=== PATIENT | female | born 1940 | race Caucasian/White ===

== ENCOUNTER 2019-10-22 14:03 | Emergency (ER) | payer MEDICARE, MEDICAID, SELFPAY ==
--- NOTE | ~2019-10-22 | XR_ITS ---
EXAMINATION: XR shoulder LT min 2V INDICATION: Left shoulder pain TECHNIQUE: Four views of the left shoulder are obtained. COMPARISON: 08/22/2008 FINDINGS: There is mild glenohumeral and acromioclavicular joint osteoarthritis. Bone alignment is no rmal. There is no acute fracture. Healed left-sided rib fractures are noted. IMPRESSION: 1. No acute osseous abnormality. Reviewed, dictated and finalized at location A. 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
--- NOTE | ~2019-10-22 | XR_ITS ---
EXAMINATION: XR humerus LT INDICATION: Left arm pain TECHNIQUE: Two views of the left humerus are obtained. COMPARISON: None available FINDINGS: There is no fracture, dislocation, or subluxation. Mild glenohumeral and acromioclavicular joint osteoarthritis is noted. The soft tissues are unremarkable. IMPRESSION: 1. No acute osseous abnormality. Reviewed, dictated and finalized at location A. H WORKER
[2019-10-22 14:05] VITALS: BP 136/70; PULSE 78; RESP 16; O2SAT 100
--- NOTE | 2019-10-22 15:17 | ED.GENADULT ---
HPI - General Adult General Chief complaint: Extremity Injury, Upper Stated complaint: L arm pain for 3 hrs Time Seen by Provider: 10/22/19 15:15 Source: patient and family Mode of arrival: EMS Limitations: dementia History of Present Illness HPI narrative: Patient was sent from the assisted living facility because she was complaining of left arm heaviness. She was seen by her sister at noon and was fine, another sister got a call at 2 PM about the complaint. Patient does have a history of stroke in 2015 that has left her with vascular dementia, no focal deficit. Patient thinks that maybe she slept on her arm wrong, the pain is getting better and she does move all extremities freely. Sister states that she could have fallen and not remember, there is no bruising. Denies any chest pain shortness of breath. Onset (ago): hour(s) Location: left and upper extremity Exacerbating factors: other (touch) Associated symptoms: denies other symptoms Treatments prior to arrival: none Related Data Allergies Allergy/AdvReac Type Severity Reaction Status Date / Time No Known Allergies Allergy Unknown Unverified 03/14/15 15:12 Review of Systems Review of Systems: All systems reviewed & are unremarkable except as noted in HPI and below [facility] Past Medical History Medical History Stroke Social History Social History (Updated 10/22/19 @ 15:30 by Cristy Worley PA-C) Smoking status: Never smoker Alcohol intake: never Substance use: never Living arrangements: assisted living Gender identity (if verbalized by the patient): Female Exam Const: General: healthy appearing, no acute distress and alert HENMT: Head: normal to inspection Eyes: Pupils: Equal, round and reactive pupils present Resp: Effort & Inspection: normal respiratory effort Auscultation: clear to auscultation bilaterally Cardio: Rate: regular rate Rhythm: abnormal rhythm irregularly irregular GI: GI Palp: Yes Soft to palpation and Yes Tenderness to palpation present (GI) (Left lower quadrant) Auscultation: normal bowel sounds Skin: General skin exam: normal color Rashes: no rashes Wounds: no wounds Neuro: General: moves all extremities, no focal motor deficits and CN's II-XI intact bilaterally Extrem: General: normal to inspection Left upper extremity: normal to inspection, full ROM, normal capillary refill and shoulder/upper arm tenderness (unclear if it is muscular or bone. No crepitus) of the mid-shaft humerus Psych: Attitude: cooperative Course Course Emergency Course: Repeat EKG was done due to irreg rhythm noted by auscultation and on bedside monitor. Repeat was also NSR. All labs and imaging are unremarkable. Pt is asking to go home, she is complaining of mild muscular pain but has full use of both upper extremities. Vital Signs Vital signs: Vital Signs Pulse Rate 78 10/22/19 14:05 Respiratory Rate 16 10/22/19 14:05 Blood Pressure 136/70 10/22/19 14:05 Pulse Oximetry 100 10/22/19 14:05 Pulse Rate 78 10/22/19 14:05 Respiratory Rate 16 10/22/19 14:05 Blood Pressure 136/70 10/22/19 14:05 Pulse Oximetry 100 10/22/19 14:05 Medical Decision Making Vital Signs Vital Signs: Vital Signs Pulse Rate 78 10/22/19 14:05 Respiratory Rate 16 10/22/19 14:05 Blood Pressure 136/70 10/22/19 14:05 Pulse Oximetry 100 10/22/19 14:05 Pulse Rate 78 10/22/19 14:05 Respiratory Rate 16 10/22/19 14:05 Blood Pressure 136/70 10/22/19 14:05 Pulse Oximetry 100 10/22/19 14:05 Discharge Plan Discharge Clinical Impression: Left upper arm pain Patient Disposition: Home, Self-Care Condition: Stable Instructions: Antibiotic Form, Arm Pain (ED) Additional Instructions: Etiology of your pain is unclear, there is no evidence of fracture or contusion. No cardiac etiology. Continue to take your Tylenol, may increase to every 4-6 cielo
--- NOTE | 2019-10-22 15:34 | ECG_ITS ---
Measurements Intervals [place] Rate: 70 P: 29 OR: 167 QRS: -21 QRSD: 90 T: 86 QT: 373 QTc: 403 Interpretive Statements SINUS RHYTHM LOW QRS VOLTAGE IN PRECORDIAL LEADS BORDERLINE R WAVE PROGRESSION, ANTERIOR LEADS BORDERLINE ST-T WAVE ABNORMALITY- LATERAL LEADS BORDERLINE ECG Electronically Signed On 10-22-2019 15:43:06 BUSINESS SYSTEM CONSULTANT by Thomas Keita D.O.
[2019-10-22 15:46] VITALS: BP 163/88; PULSE 71; RESP 16; O2SAT 100
[2019-10-22 16:12] LABS: Basophils Absolute Auto 0.1 K/mm3 (0.0-0.1); Basophils Percent Auto 1.5 % (0.2-1.2); Eosinophils Absolute Auto 0.1 K/mm3 (0-0.3); Eosinophils Percent Auto 2.4 % (0-4.4); Hematocrit 30.8 % (37.0-47.0); Hemoglobin 8.5 g/dL (12.0-15.0); Immature Granulocyte Absolute 0.01 K/mm3 (0.00-0.031); Immature Granulocyte Percent A 0.2 % (0-0.5); Lymphocytes Percent Auto 22.4 % (18.3-44.2); Mean Corpuscular HGB Conc 27.6 g/dl (32-36); Mean Corpuscular Hemoglobin 22.2 pg (26-34); Mean Corpuscular Volume 80.4 fl (80-100); Mean Platelet Volume 9.6 fl (7.4-10.4); Monocytes Absolute Auto 0.4 K/mm3 (0.1-0.6); Monocytes Percent Auto 6.4 % (2.6-8.5); Neutrophils Absolute Auto 3.9 K/mm3 (1.3-6.7); Neutrophils Percent Auto 67.1 % (45.5-73.1); Platelet Count Result 290 k/mm3 (150-375); Red Blood Count 3.83 M/mm3 (4.2-5.4); Red Cell Distribution Width 18.5 % (11.5-14.5); White Blood Count 5.8 K/mm3 (4.5-10.0)
[2019-10-22 16:24] LABS: Alanine Aminotransferase 16 U/L (4-35); Albumin Level 4.5 g/dL (3.5-5.1); Alkaline Phosphatase 70 U/L (38-126); Aspartate Amino Transferase 27 U/L (14-36); Bilirubin,Total 0.3 mg/dL (0.2-1.3); Blood Urea Nitrogen 23 mg/dL (7-17); Calcium 8.7 mg/dL (8.4-10.2); Carbon Dioxide 25 mmol/L (22-30); Chloride 106 mmol/L (98-107); Estimated CRCL calculation 33 ml/min; Estimated Glomerular Filt Rate 43; Glucose 98 mg/dL (65-105); Potassium 4.4 mmol/L (3.4-5.0); Sodium 141 mmol/L (137-145)
[2019-10-22 16:35] LABS: Troponin I < 0.012 ng/mL (0.000-0.034)
[2019-10-22 16:36] LABS: Prothrombin Time 12.8 Seconds (11.1-14.7)
[2019-10-22 16:37] LABS: Partial Thromboplastin Time 30.4 SECONDS (22.3-36.8)
[2019-10-22] MEDS: ACETAMINOPHEN 325 MG TABLET 650 MG PO (17:20)
[2019-10-22 17:58] VITALS: BP 136/88; PULSE 71; RESP 16; O2SAT 98
== END 2019-10-22 17:59 | disposition home or self-care (01) ==
PROVIDERS: Physician Assistant; Emergency Provider Emergency Medicine; PCP Family Medicine
DX: M79.602 Pain in left arm (principal); I69.919 Unspecified symptoms and signs involving cognitive functions following unspecified cerebrovascular disease; F01.50 Vascular dementia, unspecified severity, without behavioral disturbance, psychotic disturbance, mood disturbance, and anxiety; R94.31 Abnormal electrocardiogram [ECG] [EKG]
CPT/HCPCS: 36415; 73030; 73060; 80053; 84484; 85025; 85610; 85730; 93005; 99284; A9270

== ENCOUNTER 2021-03-20 10:16 | Emergency (ER) | payer MEDICARE, OTHER, SELFPAY ==
--- NOTE | ~2021-03-20 | CT_ITS ---
EXAMINATION: CT brain wo con DATE: 03/20/2021 11:01 INDICATION: Head injury. TECHNIQUE: Computed tomography (CT) of the head was performed without intravenous contrast. The mA wa s adjusted according to patient size. Iterative reconstruction technique was employed. The dose-lengt h product was 605.33 mGy-cm. COMPARISON: Head CT 01/11/2018, brain MRI 03/29/2015 FINDINGS: There are scattered areas of low attenuation in the cerebral white matter. There is an old infarct in left temporal occipital region in the expected distribution of left posterior cerebral art gely. There are old infarcts in the right basal ganglia. There is no intracranial hemorrhage, acute in farction, or abnormal intracranial mass lesion. The ventricles are normal in size. There is mucosal t hickening in the paranasal sinuses with thickening and sclerosis of some of the sinus edouard, consiste nt with chronic sinusitis. There are likely changes of ocular lens replacement surgeries. The mastoid air cells are normal. There is frontal scalp soft tissue swelling. There are fracture deformities of the nasal bones. IMPRESSION: 1. Old infarct in left temporal occipital region. Old infarcts in the right basal ganglia. 2. Stable moderate nonspecific cerebral white matter disease, which likely represents chronic small v essel ischemic disease. 3. Chronic sinusitis. 4. Age indeterminant fracture deformities of the nasal bones. Reviewed, dictated and finalized at location A. IMPRESSION: 1. Old infarct in left temporal occipital region. Old infarcts in the right bas al ganglia. 2. Stable moderate nonspecific cerebral white matter disease, which likely repr esents chronic small vessel ischemic disease. 3. Chronic sinusitis. 4. Age indeterminant fracture deformities of the nasal bones.
--- NOTE | ~2021-03-20 | CT_ITS ---
EXAMINATION: CT facial & cervical spine wo DATE: 03/20/2021 11:01 INDICATION: Head injury. TECHNIQUE: Computed tomography (CT) of the maxillofacial region and cervical spine was performed with out intravenous contrast. Automated exposure control and iterative reconstruction technique were empl oyed. The dose-length product was 513.00 mGy-cm. COMPARISON: CT cervical spine 08/31/2012 FINDINGS: MAXILLOFACIAL CT: There is mucosal thickening in the paranasal sinuses with thickening and sclerosis of some of the sin us edouard, consistent with chronic sinusitis. There is leftward deviation of the nasal septum. There a re likely changes of ocular lens replacement surgeries. There are fracture deformities of the nasal b ones. There is frontal scalp soft tissue swelling. CERVICAL SPINE CT: There is 7 degrees dextrocurvature of cervical spine. Vertebral body heights and intervertebral disc heights are normal. The following disc levels are specifically discussed: C2-C3: There is no uncovertebral joint osteoarthritis. There is moderate left facet joint osteoarthri tis. There is ankylosis of right facet joint with moderate hypertrophy. There is mild right neural fo raminal stenosis. There is no central canal stenosis. C3-C4: There is mild bilateral uncovertebral joint osteoarthritis. There is severe bilateral facet norm int osteoarthritis. There is mild bilateral neural foraminal stenosis. There is mild central canal st enosis. C4-C5: There is mild bilateral uncovertebral joint osteoarthritis. There is severe bilateral facet norm int osteoarthritis. There is mild left neural foraminal stenosis. There is mild central canal stenosi s. C5-C6: There is no uncovertebral joint osteoarthritis. There is severe bilateral facet joint osteoart hritis. There is mild left neural foraminal stenosis. There is mild central canal stenosis. C6-C7: There is no uncovertebral joint osteoarthritis. There is severe bilateral facet joint osteoart hritis. There is mild bilateral neural foraminal stenosis. There is no central canal stenosis. C7-T1: There is no uncovertebral joint osteoarthritis. There is severe right and mild left facet join t osteoarthritis. There is mild right neural foraminal stenosis. There is no central canal stenosis. IMPRESSION: 1. Fracture deformities of the nasal bones, likely chronic. 2. Chronic sinusitis. 3. Mild cervical spondylosis. Reviewed, dictated and finalized at location A.
--- NOTE | ~2021-03-20 | XR_ITS ---
EXAMINATION: XR hand RT min 3V DATE: 03/20/2021 11:07 INDICATION: Bruising at the second metacarpal post fall TECHNIQUE: Posteroanterior, oblique and lateral views of the right hand were obtained. COMPARISON: 04/13/2014 FINDINGS: No traumatic malalignment. No fracture. Polyarticular osteoarthritis, severe and with erosive compone nt at the second distal interphalangeal joint with small central erosion at the ulnar side of the bas e of the distal phalanx resulting in slight ulnar angulation. Moderate osteoarthritis at the fifth di stal interphalangeal joint with additional central erosions at the base of the fifth distal phalanx. Moderate osteoarthritis at the triscaphe and first carpal metacarpal joints. Mild osteoarthritis at t he radial ulnar, wrist, metacarpophalangeal and remaining interphalangeal joints. Portions of the mid diaphysis of the fourth proximal phalanx are obscured by a pair of metallic rings. Diffuse osteopeni a. IMPRESSION: 1. No acute osseous abnormality. 2. Polyarticular osteoarthritis, most severe at the radial aspect of the carpus and at the second and fifth distal interphalangeal joints. Reviewed, dictated and finalized at location A.
[2021-03-20 10:18] VITALS: BP 161/78; PULSE 80; RESP 18; TEMP 37.5; O2SAT 96
--- NOTE | 2021-03-20 10:50 | ED.FALL ---
HPI - Fall General Chief Complaint: Fall Stated Complaint: fall Time Seen by Provider: 03/20/21 10:25 History of Present Illness HPI Narrative: Patient is an 80-year-old female who presents ER to be evaluated after fall last night. Patient with dementia and fell at her assisted living. Patient with bruising to her right forehead and around her right eye. She reports discomfort over the bridge of her nose hand and right hand. She is oriented x2. Patient does not take any blood thinners. Related Data Allergies Allergy/AdvReac Type Severity Reaction Status Date / Time No Known Allergies Allergy Unknown Verified 03/20/21 10:24 Review of Systems Review of Systems: ROS unobtainable: Yes unobtainable due to mental status PMFSH Past Medical History Medical History (Updated 03/20/21 @ 12:14 by Zain Duran MD) Hyperlipidemia Hypertension Stroke Social History Social History (Updated 10/22/19 @ 15:30 by Cristy Worley PA-C) Smoking status: Never smoker Alcohol intake: never Substance use: never Gender identity (if verbalized by the patient): Female Exam Narrative: Exam Narrative: GENERAL: Well-appearing, well-nourished, and in no acute distress. HEAD: Normocephalic, atraumatic. Right forehead contusion. EYES: PERRL and EOMI. contusion around the right eye. ENT: Mucous membranes moist. NECK: Supple. Normal range of motion. CHEST: Clear to auscultation. No respiratory distress. HEART: Regular rate and rhythm. Normal peripheral pulses. ABDOMEN: Soft, nontender, nondistended. EXTREMITIES: Normal range of motion. Tender palpation over the third and fourth MCPs of the right hand with slight swelling. No deformity. SKIN: Warm, dry, no rash. NEURO: No focal deficits. Alert and oriented x2.. Course Course Emergency Course: Patient informed results. Discharge home. Vital Signs Vital signs: Vital Signs Temperature 99.5 F 03/20/21 10:18 Pulse Rate 80 03/20/21 10:18 Respiratory Rate 18 03/20/21 10:18 Blood Pressure 161/78 H 03/20/21 10:18 Pulse Oximetry 96 03/20/21 10:18 Temperature 99.5 F 03/20/21 10:18 Pulse Rate 60 03/20/21 11:16 Respiratory Rate 17 03/20/21 11:16 Blood Pressure 188/82 H 03/20/21 11:16 Pulse Oximetry 96 03/20/21 11:16 MDM - Fall Lab Data Labs: Lab Results 03/20/21 Range/Units 11:34 Urine Color Yellow (Yellow) Urine Appearance Clear (Clear) Urine pH 6.0 (5.0-9.0) Ur Specific [place] 1.020 (1.001-1.035) Urine Protein 1+ H (Negative) mg/dL Urine Glucose (UA) Negative (Negative) mg/dL Urine Ketones Negative (Negative) mg/dL Ur Blood (Man) Negative (Negative) Urine Nitrate Negative (Negative) Urine Bilirubin Negative (Negative) Urine Urobilinogen Negative (<2.0) mg/dL Leukocyte Esterase Rfl 1+ H (Negative) SULAIMAN/UL Urine RBC 0-2 (0-2) /hpf Urine WBC 4-6 H /hpf Ur Squamous Epith Cells Few (Few) /hpf Hyaline Casts 5-9 H (None) /lpf Urine Mucus Rare /lpf Imaging Data Radiologist's impression: ITS Impressions Head CT 03/20/21 11:02 IMPRESSION: 1. Old infarct in left temporal occipital region. Old infarcts in the right basal ganglia. 2. Stable moderate nonspecific cerebral white matter disease, which likely represents chronic small vessel ischemic disease. 3. Chronic sinusitis. 4. Age indeterminant fracture deformities of the nasal bones. Hand X-Ray 03/20/21 11:08 IMPRESSION: 1. No acute osseous abnormality. 2. Polyarticular osteoarthritis, most severe at the radial aspect of the carpus and at the second and fifth distal interphalangeal joints. Head/Cervical Spine/Facial Bones CT 03/20/21 11:14 IMPRESSION: 1. Fracture deformities of the nasal bones, likely chronic. 2. Chronic sinusitis. 3. Mild cervical spondylosis. Discharge Plan Discharge Clinical Impression: Contusion of forehead, Contusion of periorbital region Patient Disposition
[2021-03-20 11:16] VITALS: BP 188/82; PULSE 60; RESP 17; O2SAT 96
[2021-03-20 11:48] LABS: Add Urine Microscopic? YES; Appearance Urine Clear (Clear); Bilirubin Urine Negative (Negative); Blood Urine Negative (Negative); Color Urine Yellow (Yellow); Glucose Urine UA Negative (Negative); Ketones Urine Negative (Negative); Leukocyte Esterase Ur 1+ LEU/UL (Negative); Mucus Urine Rare /lpf; Nitrate Urine Negative (Negative); Protein Urine 1+ mg/dL (Negative); RBC Urine 0-2 /hpf (0-2); Squamous Epithelial Cell Urine Few /hpf (Few); Urobilinogen Urine Negative mg/dL (<2.0)
[2021-03-20 12:38] VITALS: BP 187/86; PULSE 60; RESP 18; O2SAT 100
== END 2021-03-20 12:39 ==
PROVIDERS: Emergency Provider Emergency Medicine; PCP Family Medicine
DX: S00.11XA Contusion of right eyelid and periocular area, initial encounter (principal); S00.83XA Contusion of other part of head, initial encounter; W18.30XA Fall on same level, unspecified, initial encounter; E78.5 Hyperlipidemia, unspecified; I10 Essential (primary) hypertension
CPT/HCPCS: 70450; 70486; 72125; 73130; 81001; 99284

== ENCOUNTER 2021-11-27 16:10 | Observation (INO) | payer MEDICARE, MEDICAID, SELFPAY ==
[2021-11-27] VITALS (13 sets, daily range): BP systolic 100–224; BP diastolic 46–97; PULSE 39–65; RESP 16–20; TEMP 36.2–36.8; O2SAT 95–100; BMI 32.3
--- NOTE | ~2021-11-27 | CT_ITS ---
EXAMINATION: CT brain wo con EXAM DATE: 11/27/2021 20:34 INDICATION: Headache HTN. TECHNIQUE: Spiral CT of the head was performed without contrast. Axial, coronal and sagittal images were reviewed. The dose-length product (DLP) for this examination was 983.67 mGy-cm. The exposure w as tailored according to patient size, and iterative reconstruction (ASIR) was used as additional dos e reduction technique. Comparison is made to prior examination from 03/20/2021. 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 There is no acute intraparenchy mal hemorrhage. No evidence of intraparenchymal brain mass lesion. No evidence of acute infarction. Please note that initial head CT has limited sensitivity for small or acute infarctions. There is moderate periventricular and subcortical hypodensity, nonspecific but probably related to small vesse l ischemic disease. There is mild to moderate prominence of the sulci and ventricles related to cer ebral atrophy. There is intracranial carotid arteriosclerosis. There are no extra-axial collection s. There is no mass effect or midline shift. Patient has had bilateral ocular lens surgery. Soft t issue is unremarkable. Moderate left maxillary sinus mucoperiosteal thickening. IMPRESSION: 1. No acute intracranial findings. 2. Chronic age related findings. 3. 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 Reviewed, dictated and finalized at location G.
--- NOTE | 2021-11-27 16:44 | ECG_ITS ---
Measurements Intervals [place] Rate: 57 P: 58 ID: [id number] QRS: 16 QRSD: 90 T: 95 QT: 423 QTc: 413 Interpretive Statements SINUS BRADYCARDIA LOW QRS VOLTAGE IN PRECORDIAL LEADS [QRS DEFLECTION < 1.0 mV IN CHEST LEADS] NONSPECIFIC T-WAVE ABNORMALITY ABNORMAL ECG COMPARED TO ECG 10/22/2019 16:11:20 SINUS BRADYCARDIA NOW PRESENT Electronically Signed On 11-28-2021 13:52:00 CDT by Jet Lind M.D.
[2021-11-27 17:36] LABS: Basophils Absolute Auto 0.1 K/mm3 (0.0-0.1); Basophils Percent Auto 1.2 % (0.2-1.2); Eosinophils Absolute Auto 0.3 K/mm3 (0-0.3); Eosinophils Percent Auto 4.9 % (0-4.4); Hematocrit 28.3 % (37.0-47.0); Hemoglobin 7.7 g/dL (12.0-15.0); Immature Granulocyte Absolute 0.01 K/mm3 (0.00-0.031); Immature Granulocyte Percent A 0.2 % (0-0.5); Lymphocytes Absolute Auto 1.78 K/mm3 (0.9-3.2); Lymphocytes Percent Auto 34.6 % (18.3-44.2); Mean Corpuscular HGB Conc 27.2 g/dl (32-36); Mean Corpuscular Hemoglobin 21.8 pg (26-34); Mean Corpuscular Volume 79.9 fl (80-100); Mean Platelet Volume 10.1 fl (7.4-10.4); Monocytes Absolute Auto 0.5 K/mm3 (0.1-0.6); Monocytes Percent Auto 10.1 % (2.6-8.5); Neutrophils Absolute Auto 2.5 K/mm3 (1.3-6.7); Platelet Count Result 250 k/mm3 (150-375); Red Blood Count 3.54 M/mm3 (4.2-5.4); Red Cell Distribution Width 18.1 % (11.5-14.5); White Blood Count 5.2 K/mm3 (4.5-10.0)
--- NOTE | 2021-11-27 17:43 | ED.RECABL ---
HPI - Recheck/Abnormal Lab/Rx General Chief Complaint: Recheck/Abnormal Lab/Rx <Arnav Brurell MD - Last Filed: 11/27/21 20:20> Stated Complaint: HTN <Arnav Burrell MD - Last Filed: 11/27/21 20:20> Time Seen by Provider: 11/27/21 16:32 <Arnav Burrell MD - Last Filed: 11/27/21 20:20> Source: patient <Arnav Burrell MD - Last Filed: 11/27/21 20:20> History of Present Illness HPI narrative: Patient presents with high blood pressure. She is in a nursing facility patient blood pressure has been elevated above 200 for most of the day nursing facility was concerned stated for the patient ER for evaluation. Patient has no complaints. She denies any chest pain shortness of breath headache focal numbness or weakness abdominal pain nausea vomiting. Reports her urine is yellow and may have a UTI. <Arnav Burrell MD - Last Filed: 11/27/21 20:20> Related Data Allergies/Adverse Reactions: Allergies Allergy/AdvReac Type Severity Reaction Status Date / Time No Known Allergies Allergy Unknown Verified 11/02/21 14:50 <Arnav Burrell MD - Last Filed: 11/27/21 20:20> Review of Systems Review of Systems: CONSTITUTIONAL: Denies fever, chills, or sweats. EYES: Denies visual changes, redness, or discharge. ENT: Denies rhinorrhea, congestion, sore throat, or otalgia. CARDIOVASCULAR: Denies chest pain, palpitations, or edema. RESPIRATORY: Denies cough or dyspnea. GASTROINTESTINAL: Denies abdominal pain, nausea, vomiting, or diarrhea. GENITOURINARY: Denies dysuria or hematuria. SKIN: Denies rash or itching. MUSCULOSKELETAL: Denies back pain, joint pain, or myalgia. NEUROLOGIC: Denies headache, numbness, dizziness, or weakness. PSYCHIATRIC: Denies anxiety or depression. <Arnav Burrell MD - Last Filed: 11/27/21 20:20> All systems reviewed & are unremarkable except as noted in HPI and below <Arnav Burrell MD - Last Filed: 11/27/21 20:20> PMFSH Past Medical History Medical History: Medical History Hyperlipidemia Hypertension Stroke <Arnav Burrell MD - Last Filed: 11/27/21 20:20> Social History Social History: Social History Smoking status: Never smoker Alcohol intake: never Substance use: never Gender identity (if verbalized by the patient): Female <Arnav Burrell MD - Last Filed: 11/27/21 20:20> Exam Narrative: GENERAL: Well-appearing, well-nourished, and in no acute distress. HEAD: Normocephalic, atraumatic. EYES: PERRLA and EOMI. ENT: Nares clear, no rhinorrhea or epistaxis. Mucous membranes moist. NECK: Supple. No masses. No JVD CHEST: Clear to auscultation. No respiratory distress. No wheezes rales or rhonchi HEART: Regular rate and rhythm. No murmur heard. Normal peripheral pulses. ABDOMEN: Soft, nontender, nondistended, normal active bowel sounds. EXTREMITIES: Normal range of motion. No edema. SKIN: Warm, dry, no rash. NEURO: No focal deficits. Alert and oriented x3. PSYCH: Normal mood and affect. <Arnav Burrell MD - Last Filed: 11/27/21 20:20> Course Reevaluation(s) Reevaluation #1: Patient is continues to be asymptomatic work-up thus far was clinically unremarkable. <Arnav Burrell MD - Last Filed: 11/27/21 20:20> Date: 11/27/21 <Arnav Burrell MD - Last Filed: 11/27/21 20:20> Time: 19:55 <Arnav Burrell MD - Last Filed: 11/27/21 20:20> Reevaluation #2: Patient is patient reports she now has a headache. Reports she had a headache the whole time but did not want to admit that she has any pain and feel that she may be admitted to the hospital. Additional imaging and therapies ordered patient signed out to Dr. Vidales. Pending imaging and reevaluatoin. <Arnav Burrell MD - Last Filed: 11/27/21 20:20> Date: 11/27/21 <Arnav Burrell MD - Last Filed: 11/27/21 20:20> Time:
[2021-11-27 17:58] LABS: Alanine Aminotransferase 10 U/L (4-35); Alkaline Phosphatase 62 U/L (38-126); Anion Gap 4 mmol/L (8-16); Aspartate Amino Transferase 29 U/L (14-36); Bilirubin,Total 0.4 mg/dL (0.2-1.3); Blood Urea Nitrogen 25 mg/dL (7-17); Calcium 8.1 mg/dL (8.4-10.2); Carbon Dioxide 24 mmol/L (22-30); Chloride 109 mmol/L (98-107); Estimated Glomerular Filt Rate 53; Glucose 94 mg/dL (65-110); Potassium 4.8 mmol/L (3.4-5.0); Sodium 137 mmol/L (137-145)
[2021-11-27 18:09] LABS: Troponin I < 0.012 ng/mL (0.000-0.034)
[2021-11-27 18:14] LABS: Platelet Estimate Adequate (Adequate)
[2021-11-27 18:15] LABS: Hypochromasia 1+ (NORMAL); Ovalocytes 1+ (NORMAL)
[2021-11-27] MEDS: hydrALAZINE HCL 20 MG/ML VIAL 10 MG IV PUSH ×2 (18:35→20:08)
[2021-11-27 19:33] LABS: Add Urine Microscopic? YES; Appearance Urine Clear (Clear); Bilirubin Urine Negative (Negative); Blood Urine Negative (Negative); Color Urine Straw (Yellow); Glucose Urine UA Negative (Negative); Ketones Urine Negative (Negative); Leukocyte Esterase Ur 1+ LEU/UL (Negative); Nitrate Urine Negative (Negative); Protein Urine 1+ mg/dL (Negative); RBC Urine 0-2 /hpf (0-2); Specific Grav Ur 1.013 (1.001-1.035); Urobilinogen Urine Negative mg/dL (<2.0)
--- NOTE | 2021-11-27 20:28 | PC.NURSE ---
Pt daughter states that she was rubbing her temples and c/o headache. Pt states she does want staff to know so we don't keep her . ERP made aware, d/c cancelled and head CT ordered.
--- NOTE | 2021-11-27 20:50 | PC.NURSE ---
Upon return from CT pt c/o nausea and feeling poorly. Noted to have periods of bradycardia, rate of 39, bp 100/74. TOSHIA Kilpatrick made aware, orders for zofran received but no further interventions.
[2021-11-27] MEDS: ONDANSETRON INJ 4 MG/2 ML VIAL (20:53)
--- NOTE | 2021-11-27 21:18 | PC.NURSE ---
Arash at [facility] updated on patients name for admission. Family is agreeable.
[2021-11-27 22:01] LABS: SARS-CoV-2 RNA PCR Negative
--- NOTE | 2021-11-27 22:33 | ADMGEN ---
At 2155 this patient, Kateryna Schreiber, was admitted to 3 [facility] Surg Room 301-01. Patient/family oriented to hospital policies and general routines including ID bracelet, bed and alarms, visiting hours, pain management, procedures, bathroom and other care routines, personal items, smoking policy, room service/diet, and visiting hours. Information on how to activate the Rapid Response Team has been discussed. Patient/Family are encouraged to report perceived risks to care and to ask questions if they do not understand what they are told or what they should do.
--- NOTE | 2021-11-27 23:42 | PM.IMHP ---
H&P: HPI History of Present Illness Date/Time: 11/27/21 23:42 Chief Complaint: Elevated blood pressure Narrative: This is an 81-year-old female with a skilled nursing resident at [facility] who was brought in via EMS for elevated blood pressure that was noted when checked routinely in the nursing facility. It read 220/110. Patient however denied any complaints earlier or after EMS arrival. She denies any headache blurriness of vision or weakness. She has been on medication for hypertension and has also been compliant with it. Her other past medical history also includes anemia, anxiety, asthma, depression, GERD, hyperlipidemia. Upon EMS arrival her blood pressure checked was noted to be 210/102 with a heart rate of 68. This is from the note from the EMS. ED physician mentions she was complaining of headache earlier however is not complaining of any headache to me. Upon arrival to the ED her blood pressure was noted to be elevated for which she was given hydralazine IV x2 which subsequently dropped her blood pressure down to 100/60 with some bradycardia in 40s. She was thus getting admitted for further evaluation and monitoring under observation status. Review of Systems Review of Systems: - CONSTITUTIONAL: Denies weight loss, fever and chills. - HEENT: Denies changes in vision and hearing - RESPIRATORY: Denies SOB and cough. - CV: Denies palpitations and CP. - GI: Denies abdominal pain, nausea, vomiting and diarrhea. - : Denies dysuria and urinary frequency. - MSK: Denies myalgia and joint pain. - SKIN: Denies rash and pruritus. - NEUROLOGICAL: Denies headache and syncope. States she does not remember much lately - PSYCHIATRIC: Denies recent changes in mood. Denies anxiety and depression. All systems reviewed & are unremarkable except as noted in HPI and below Constitutional: Constitutional: Reports fatigue and Reports weakness Neurologic: Reports weakness Endocrine: Endocrine: Reports fatigue PMFSH Past Medical History Medical History (Updated 11/28/21 @ 00:11 by Manuel Thapa MD) Hyperlipidemia Hypertension Stroke Social History Social History Smoking status: Never smoker Second hand tobacco smoke exposure: No Alcohol intake: never Substance use: never Gender identity (if verbalized by the patient): Female Spiritual care concerns: No Meds Home Medications and Allergies Home Medications Medication Instructions Recorded Confirmed Type amlodipine 10 mg PO DAILY 11/27/21 11/27/21 History atorvastatin 40 mg PO DAILY 11/27/21 11/27/21 History famotidine 20 mg PO DAILY 11/27/21 11/27/21 History sertraline 50 mg PO DAILY 11/27/21 11/27/21 History Allergies Allergy/AdvReac Type Severity Reaction Status Date / Time No Known Allergies Allergy Unknown Verified 11/02/21 14:50 Vital Signs Vital Signs - 24 hr 11/27/21 16:12 11/27/21 16:28 11/27/21 17:00 Temperature 98.2 F Pulse Rate 58 L 59 L 60 Respiratory Rate 16 18 18 Blood Pressure 205/92 H 224/96 H 209/97 H Pulse Oximetry 100 99 99 11/27/21 18:21 11/27/21 18:54 11/27/21 19:01 Temperature Pulse Rate 56 L 58 L 65 Respiratory Rate 18 18 18 Blood Pressure 221/93 H 191/93 H 212/90 H Pulse Oximetry 98 98 98 11/27/21 19:30 11/27/21 19:54 11/27/21 20:51 Temperature Pulse Rate 61 61 39 L Respiratory Rate 18 18 18 Blood Pressure 203/78 H 211/86 H 100/74 Pulse Oximetry 98 98 100 11/27/21 20:54 11/27/21 21:03 11/27/21 21:45 Temperature Pulse Rate 59 L 56 L 63 Respiratory Rate 18 18 18 Blood Pressure 100/64 115/46 L Pulse Oximetry 97 95 99 11/27/21 21:53 Temperature 97.2 F L Pulse Rate 59 L Respiratory Rate 20 Blood Pressure 137/50 L Pulse Oximetry 99 Exam Narrative: GENERAL: Well-appearing, well-nourished, and in no acute distress. HEAD: Normocephalic, atraumatic. EYES: PERRLA and EOMI. ENT: Nares clear, no rhinorrh
[2021-11-28] VITALS (9 sets, daily range): BP systolic 135–167; BP diastolic 51–76; PULSE 57–85; RESP 18–20; TEMP 36.1–36.9; O2SAT 90–98
[2021-11-28 06:37] LABS: Immature Reticulocyte Fraction 24.8 % (3.0-15.9); Reticulocyte Percent 1.34 % (0.7-4.3); Reticulocytes Absolute 0.05 B/L (32.2-175.7)
[2021-11-28 06:45] LABS: Iron 28 ug/dL (37-170)
[2021-11-28 06:54] LABS: Percent Iron Saturation 7 % (20-50)
[2021-11-28 07:21] LABS: Ferritin 8.25 ng/mL (11.1-264)
[2021-11-28 07:40] LABS: Glucose Point of Care 92 mg/dl (65-105)
[2021-11-28 07:51] LABS: Folic Acid 8.9 ng/mL (2.76->20)
[2021-11-28] MEDS: ATORVASTATIN 40 MG TABLET PO (08:07)
[2021-11-28] MEDS: FAMOTIDINE 20 MG TABLET PO (08:07)
[2021-11-28] MEDS: amLODIPine BESYLATE 5 MG TABLET 10 MG PO (08:07)
[2021-11-28] MEDS: SERTRALINE HCL 50 MG TABLET PO (08:07)
[2021-11-28] MEDS: DOCUSATE SODIUM 100 MG CAPSULE PO ×2 (08:25→20:19)
[2021-11-28 08:38] LABS: Iron 27 ug/dL (37-170)
--- NOTE | 2021-11-28 12:11 | PM.IMPN ---
Progress Note: A&P Assessment and Plan (1) Hypertensive urgency: Code(s): I16.0 - Hypertensive urgency Status: Acute (2) Bradycardia: Code(s): R00.1 - Bradycardia, unspecified Status: Acute (3) Anemia, chronic disease: Code(s): D63.8 - Anemia in other chronic diseases classified elsewhere Status: Acute (4) Dementia: Code(s): F03.90 - Unspecified dementia without behavioral disturbance Status: Acute (5) Hypertension: Code(s): I10 - Essential (primary) hypertension Status: Acute (6) Hyperlipidemia: Code(s): E78.5 - Hyperlipidemia, unspecified Status: Acute (7) Stroke: Code(s): I63.9 - Cerebral infarction, unspecified Status: Acute Additional Plan Headache presented with headache as noted in the ED reports but she denies any currently. Also not noted in EMS report. Be transient due to high blood pressure when she presented. Continue to monitor head CT done on arrival is negative. Hypertensive urgency with headache given hydralazine x2 on arrival for her blood pressure in 200s over 90s, dropped down to 100/64 with bradycardia in 40s. Patient admitted for observation and further monitoring. History of hypertension resume her home medication and continue to monitor blood pressure Hyperlipidemia home medication Anxiety depression home medication GERD on medication Dementia she seems to have underlying dementia Moderate size left occipital lobe infarction noted in CT longterm resident Chronic anemia no evidence of active blood loss. Previous labs noted to have similar level of hemoglobin. RBC indices suggestive of iron deficiency will check iron level, vitamin B12 and folate reticulocyte count. Check occult blood in stool DVT prophylaxis SCDs due to anemia Code status full code Admitted under observation status 11/28/21: Pt. without any acute distress at this time. Her BP has ranged from 1-teens - 150s/40s-60s. Hypertensive urgency is resolved. Her home Amlodipine has been restarted and as her BP seems to be rising as the day goes on, she may need either an additional medication added later. We will need to continue to monitor. All other home medications have been resumed. She does appear to be anemic with a Hgb of 7.7 and hematocrit of 28.3. No overt blood loss and the pt. has not noted any blood in her urine. Anemia studies show low Iron and she is therefore started on supplemental Iron today along with Colace BID to prevent constipation. An occult blood of stool was ordered to assess for possible GI bleed. All other home medications have been restarted. Her B12 and Folate are normal. She does have a urine culture pending as she had 1+ Leuks in her UA, however, she is not symptomatic of an acute UTI, so treatment is deferred at this time. Culture pending. Time Spent With Patient Time with patient: 15 - 25 minutes Subjective Date/time seen: 11/28/21 0830 This pt. was examined at the bedside in interval assessment. She denies any acute complaints at this time of dyspnea, palpitations and no CP, dyspnea, N/V/D. Her BP has been treated acutely in ER and she has been restarted on her home medication and BP has been stable since. Her Hgb is noted to be low and there is no overt bleeding noted. Anemia labs are back and pt. is low on Iron. Supplemental po Iron is initiated today with Colace BID for prevention of constipation. Plan is to continue to monitor her BP and Hgb and will obtain occult blood for stool. She will likely be ready for discharge back to [facility] tomorrow. Review of Systems Review of Systems: A full 12 point ROS was completed and is otherwise negative with exception of what is noted in HPI. All systems reviewed & are unremarkable except as noted in HPI and below Exam Narrative: GENERAL: Well-appearing, well-nourished, and in no acute distress. HEAD: Normocephalic, atraumatic. EYES: PERRLA and EOMI. ENT: Nares clear, no rhinorr
[2021-11-29] VITALS (10 sets, daily range): BP systolic 161–185; BP diastolic 74–78; PULSE 63–82; RESP 16–20; TEMP 36.1–36.8; O2SAT 93–96
[2021-11-29] MEDS: ATORVASTATIN 40 MG TABLET PO (09:44)
[2021-11-29] MEDS: DOCUSATE SODIUM 100 MG CAPSULE PO ×2 (09:44→20:34)
[2021-11-29] MEDS: amLODIPine BESYLATE 5 MG TABLET 10 MG PO (09:44)
[2021-11-29] MEDS: SERTRALINE HCL 50 MG TABLET PO (09:45)
[2021-11-29] MEDS: FAMOTIDINE 20 MG TABLET PO (09:45)
[2021-11-29] MEDS: IRON SUCROSE COMPLEX 200 MG in SODIUM CHLORIDE 0.9% IV 50 ML 120 MG IVPB (09:45)
[2021-11-29 10:07] LABS: Basophils Absolute Auto 0.1 K/mm3 (0.0-0.1); Basophils Percent Auto 1.1 % (0.2-1.2); Eosinophils Absolute Auto 0.2 K/mm3 (0-0.3); Eosinophils Percent Auto 3.2 % (0-4.4); Hematocrit 29.7 % (37.0-47.0); Hemoglobin 8.2 g/dL (12.0-15.0); Immature Granulocyte Absolute 0.01 K/mm3 (0.00-0.031); Immature Granulocyte Percent A 0.2 % (0-0.5); Lymphocytes Absolute Auto 1.31 K/mm3 (0.9-3.2); Lymphocytes Percent Auto 23.5 % (18.3-44.2); Mean Corpuscular HGB Conc 27.6 g/dl (32-36); Mean Corpuscular Hemoglobin 22.3 pg (26-34); Mean Corpuscular Volume 80.9 fl (80-100); Mean Platelet Volume 10.3 fl (7.4-10.4); Monocytes Absolute Auto 0.5 K/mm3 (0.1-0.6); Monocytes Percent Auto 8.6 % (2.6-8.5); Neutrophils Absolute Auto 3.5 K/mm3 (1.3-6.7); Neutrophils Percent Auto 63.4 % (45.5-73.1); Platelet Count Result 281 k/mm3 (150-375); Red Blood Count 3.67 M/mm3 (4.2-5.4); Red Cell Distribution Width 18.1 % (11.5-14.5); White Blood Count 5.6 K/mm3 (4.5-10.0)
[2021-11-29 10:19] LABS: Anion Gap 4 mmol/L (8-16); Blood Urea Nitrogen 26 mg/dL (7-17); Calcium 8.2 mg/dL (8.4-10.2); Carbon Dioxide 27 mmol/L (22-30); Chloride 107 mmol/L (98-107); Estimated CRCL calculation 36 ml/min; Estimated Glomerular Filt Rate 47; Glucose 143 mg/dL (65-110); Potassium 4.1 mmol/L (3.4-5.0); Sodium 138 mmol/L (137-145)
[2021-11-29 10:37] LABS: Hypochromasia 2+ (NORMAL); Platelet Estimate Adequate (Adequate)
[2021-11-29 10:40] LABS: Stomatocytes 1+ (NORMAL)
--- NOTE | 2021-11-29 15:54 | PM.IMPN ---
Progress Note: A&P Assessment and Plan (1) Hypertensive urgency: Code(s): I16.0 - Hypertensive urgency Status: Acute Assessment and Plan: Patient's BP has reduced from 185/75 this AM to 161/77 at 1400 hrs. She endorses reemergence of headache this afternoon. BP was rechecked at 162/74. She was re-started on Amlodipine 10 this AM. We will continue this and add lisinopril 5mg to bring her under better hypertensive control before discharge. Continue to monitor BP. (2) Bradycardia: Code(s): R00.1 - Bradycardia, unspecified Status: Acute Assessment and Plan: Patient is not currently bradycardic. Continue Q 4hr Telemetry. (3) Anemia, chronic disease: Code(s): D63.8 - Anemia in other chronic diseases classified elsewhere Status: Acute Assessment and Plan: Patient endorses history of chronic anemia without blood loss. CBC shows a microcytic anemia with MCV of 80.9, with iron studies showing iron of 27L, TIBC 409, total iron saturation of 7 and ferritin of 8.25. Patient was given 200mg IV iron once today and will be started on 324mg daily ferrous sulfate in the AM. Stool occult blood has been ordered but not yet collected. Will check this upon resulting. (4) Dementia: Code(s): F03.90 - Unspecified dementia without behavioral disturbance Status: Suspected Assessment and Plan: Patient endorses poor memory and recall. She does continue to repeat the complaint which brought her to the ER from her half-way. (5) Hyperlipidemia: Code(s): E78.5 - Hyperlipidemia, unspecified Status: Acute Assessment and Plan: Patient is currently on atorvastatin 40m. LFTs are within normal limits. Will continue statin therapy. Continue heart healthy diet. (6) Stroke: Code(s): I63.9 - Cerebral infarction, unspecified Status: Acute (7) Headache: Code(s): R51.9 - Headache, unspecified Status: Acute Assessment and Plan: Patient endorses new headache this afternoon. BP check showed patient with pressures in 160s/70s. Will treat with Tylenol PRN. Additional Plan 11/29/21 [facility] resident Is able to ambulate with assistance, but will start SCDs bilaterally for DVT prophylaxis. Admitted under observation status Urine culture showed genital dereck, not indicative of a urinary tract infection. Patient denies urinary symptoms. 11/28/21: Pt. without any acute distress at this time. Her BP has ranged from 1-teens - 150s/40s-60s. Hypertensive urgency is resolved. Her home Amlodipine has been restarted and as her BP seems to be rising as the day goes on, she may need either an additional medication added later. We will need to continue to monitor. All other home medications have been resumed. She does appear to be anemic with a Hgb of 7.7 and hematocrit of 28.3. No overt blood loss and the pt. has not noted any blood in her urine. Anemia studies show low Iron and she is therefore started on supplemental Iron today along with Colace BID to prevent constipation. An occult blood of stool was ordered to assess for possible GI bleed. All other home medications have been restarted. Her B12 and Folate are normal. She does have a urine culture pending as she had 1+ Leuks in her UA, however, she is not symptomatic of an acute UTI, so treatment is deferred at this time. Culture pending. Subjective Date/time seen: 11/29/21 15:54 Interval history: Ms. Schreiber is a pleasant 82 year old female with PMHx of hyperlipidemia, hypertension, anemia, and stroke, who presented to the ER yesterday with elevated blood pressure. She reports memory issues and intermittent headaches. She reports yesterday she had a terrible headache and was told her blood pressure was high. Today she reports a headache starting in the afternoon and persists at present. She endorses normal appetite, bowel movements, and urination. She denies chest pain, dizziness, visual changes, shortne
[2021-11-30] VITALS: PULSE 74
[2021-11-30 04:00] VITALS: PULSE 61
[2021-11-30 06:00] VITALS: BP 144/77; PULSE 96; RESP 14; TEMP 36.4; O2SAT 100
[2021-11-30 08:00] VITALS: PULSE 63
[2021-11-30] MEDS: SERTRALINE HCL 50 MG TABLET PO (10:29)
[2021-11-30] MEDS: FERROUS SULFATE 324 MG TABLET PO (10:29)
[2021-11-30] MEDS: lisinopriL 5 MG TABLET PO (10:29)
[2021-11-30] MEDS: ATORVASTATIN 40 MG TABLET PO (10:30)
[2021-11-30] MEDS: DOCUSATE SODIUM 100 MG CAPSULE PO (10:30)
[2021-11-30] MEDS: amLODIPine BESYLATE 5 MG TABLET 10 MG PO (10:30)
[2021-11-30] MEDS: FAMOTIDINE 20 MG TABLET PO (10:30)
[2021-11-30 12:00] VITALS: PULSE 73
--- NOTE | 2021-11-30 13:53 | PM.DS ---
DS: Admitting Diagnosis Discharge Date 11/30/2021 Admitting Diagnosis 1) Hypertensive Urgency 2) Bradycardia 3) Anemia 4) Dementia 5) Hypertension 6) HLD 7) Stroke DS: Discharge Diagnosis Discharge Diagnosis (1) Hypertensive urgency: Code(s): I16.0 - Hypertensive urgency Status: Acute Assessment and Plan: - Patient's BP has reduced from 185/75 this AM to 161/77 at 1400 hrs. She endorses reemergence of headache this afternoon. BP was rechecked at 162/74. She was re-started on Amlodipine 10 this AM. We will continue this and add lisinopril 5mg to bring her under better hypertensive control before discharge. Continue to monitor BP. - Blood pressures have stabilized and she has no continued headache or deficits. (2) Bradycardia: Code(s): R00.1 - Bradycardia, unspecified Status: Acute Assessment and Plan: - Patient is not currently bradycardic. Continue Q 4hr Telemetry. (3) Anemia, chronic disease: Code(s): D63.8 - Anemia in other chronic diseases classified elsewhere Status: Acute Assessment and Plan: - Patient endorses history of chronic anemia without blood loss. - BC shows a microcytic anemia with MCV of 80.9, with iron studies showing iron of 27L, TIBC 409, total iron saturation of 7 and ferritin of 8.25. - Patient was given 200mg IV iron once today and will be started on 324mg daily ferrous sulfate in the AM. - Hgb stable at 8.2 after the IV Iron was given yesterday. (4) Dementia: Qualifiers: Dementia type: unspecified type Dementia behavioral disturbance: without behavioral disturbance Qualified Code(s): F03.90 - Unspecified dementia without behavioral disturbance Code(s): F03.90 - Unspecified dementia without behavioral disturbance Status: Suspected Assessment and Plan: - Patient endorses poor memory and recall. She does continue to repeat the complaint which brought her to the ER from her group home. (5) Hyperlipidemia: Qualifiers: Hyperlipidemia type: unspecified Qualified Code(s): E78.5 - Hyperlipidemia, unspecified Code(s): E78.5 - Hyperlipidemia, unspecified Status: Acute Assessment and Plan: - Patient is currently on atorvastatin 40m. LFTs are within normal limits. Will continue statin therapy. Continue heart healthy diet. (6) Headache: Qualifiers: Headache type: unspecified Headache chronicity pattern: unspecified pattern Intractability: not intractable Qualified Code(s): R51.9 - Headache, unspecified Code(s): R51.9 - Headache, unspecified Status: Acute Assessment and Plan: - Patient endorses new headache this afternoon. BP check showed patient with pressures in 160s/70s. Will treat with Tylenol PRN. - Now resolved DS: Summary Hospital Course Reason for hospitalization: Hypertensive Urgency Hospital Course: This pleasant 81 year old patient presented to the ER from [facility] with complaints of having elevated blood pressure of 220/110 when checked today., She denied any complaints after arriving to ER. There was no blurriness of vision or weakness, but she has had some headaches. With IV Hydralazine her BP started to come down. It has waxed and waned since being here, as has her headache, but she is stable now with her BP's ranging 140s-160s/70s-80s. There was initial concern for UTI, but culture showed normal genital dereck signifying not an actual UTI. The pt's medications have been adjusted to include Lisinopril and she will be sent home with this new prescription. She has been stable today with no complaints. Status at Discharge Functional status at discharge: independent ambulation Overall status at discharge: patient is back to baseline Time Spent with Patient Time attestation: Total time spent providing and/or coordinating discharge services: Exam Const: General: comfortable and no acute distress Limitations: no limitations MARIEL
[2021-11-30 13:54] VITALS: BP 143/65; PULSE 66; RESP 18; TEMP 36.1; O2SAT 97
[2021-11-30 14:52] LABS: EDCOVIDSCREEN Negative (Negative)
== END 2021-11-30 16:40 ==
LOC: ANHED 20:58 → ANH3MEDSUR 21:30
PROVIDERS: Emergency Medicine; Physician Assistant; Admitting Provider Internal Medicine; Emergency Provider Emergency Medicine; PCP Family Medicine; Visit Provider Nurse Practitioner Adult Health
DX: I16.0 Hypertensive urgency (principal); D63.8 Anemia in other chronic diseases classified elsewhere; Z20.822 Contact with and (suspected) exposure to COVID-19; F03.90 Unspecified dementia, unspecified severity, without behavioral disturbance, psychotic disturbance, mood disturbance, and anxiety; I10 Essential (primary) hypertension; E78.5 Hyperlipidemia, unspecified; F41.8 Other specified anxiety disorders; K21.9 Gastro-esophageal reflux disease without esophagitis; Z86.73 Personal history of transient ischemic attack (TIA), and cerebral infarction without residual deficits; Z79.899 Other long term (current) drug therapy
CPT/HCPCS: 36415; 70450; 80048; 80053; 81001; 82607; 82728; 82746; 82948; 83540; 83550; 84484; 85025; 85046; 87086; 87088; 87426; 93005; 96365; 96367; 96375; 96376; 97161; 97165; 99285; A9270; C9803; G0378; J0131; J0360; J1756; J2405; U0003; U0005

== ENCOUNTER 2022-04-02 13:35 | Emergency (ER) | payer MEDICARE, MEDICAID, SELFPAY ==
--- NOTE | ~2022-04-02 | CT_ITS ---
EXAMINATION: CT brain wo con DATE: 04/02/2022 14:07 INDICATION: Head injury. TECHNIQUE: Computed tomography (CT) of the head was performed without intravenous contrast. The dose- length product was 605.33 mGy-cm. Automated exposure control and iterative reconstruction technique w ere employed. COMPARISON: CT dated 11/27/2021 FINDINGS: There is a small subdural hemorrhage along the anterior aspect of the interhemispheric fiss ure measuring 5 mm width. There is a chronic left occipital lobe infarction with encephalomalacia The re are scattered moderate periventricular and subcortical white matter changes, most likely related t o small vessel ischemic disease (microangiopathy). There is intracranial atherosclerosis. There is bi lateral maxillary and left sphenoid sinusitis. Mastoids are pneumatized. No depressed skull fractures . IMPRESSION: 1. Acute left frontal subdural hemorrhage along the interhemispheric fissure fissuring 5 mm width. 2: Chronic left occipital lobe infarction. 3: Moderate sinusitis. 4: Chronic age-related findings. Dr. Javier Middleton discussed with Dr. Antony Maldonado MD at 04/02/2022 14:13 CDT. Reviewed, dictated and finalized at location A. IMPRESSION: 1. Acute left frontal subdural hemorrhage along the interhemispheric fissure fi ssuring 5 mm width. 2: Chronic left occipital lobe infarction. 3: Moderate sinusitis. 4: Chronic age-related findings. Dr. Javier Middleton discussed with Dr. Antony Maldonado MD at 04/02/2022 14:13 CDT.
[2022-04-02 13:38] VITALS: BP 154/65; PULSE 62; RESP 20; TEMP 37.1; O2SAT 98
--- NOTE | 2022-04-02 13:43 | ED.FALL ---
HPI - Fall General Chief Complaint: Fall Stated Complaint: fall - head injury Time Seen by Provider: 04/02/22 13:36 History of Present Illness HPI Narrative: 81-year-old female presenting to the emergency department for evaluation after having a ground-level fall. Patient states that she slipped due to her shoes causing her to fall and strike her head. Patient did injure the back of her scalp and has a small laceration. Patient denies any loss of consciousness. Patient denies any other pain or injury. Related Data Home Medications Medication Instructions Recorded Confirmed amlodipine 10 mg tablet 10 mg PO DAILY 11/27/21 11/27/21 atorvastatin 40 mg tablet 40 mg PO DAILY 11/27/21 11/27/21 famotidine 20 mg tablet 20 mg PO DAILY 11/27/21 11/27/21 sertraline 50 mg tablet 50 mg PO DAILY 11/27/21 11/27/21 Allergies Allergy/AdvReac Type Severity Reaction Status Date / Time No Known Allergies Allergy Unknown Verified 11/02/21 14:50 Review of Systems Review of Systems: CONSTITUTIONAL: See HPI EYES: Denies visual changes, redness, or discharge. ENT: Denies rhinorrhea, congestion, sore throat, or otalgia. CARDIOVASCULAR: Denies chest pain, palpitations, or edema. RESPIRATORY: Denies cough or dyspnea. GASTROINTESTINAL: Denies abdominal pain, nausea, vomiting, or diarrhea. GENITOURINARY: Denies dysuria or hematuria. SKIN: See HPI MUSCULOSKELETAL: Denies back pain, joint pain, or myalgia. NEUROLOGIC: Denies headache, numbness, or weakness. [facility] Past Medical History Medical History (Updated 04/02/22 @ 19:14 by Antony Maldonado MD) Hyperlipidemia Hypertension Social History Social History Smoking status: Never smoker Second hand tobacco smoke exposure: No Alcohol intake: never Substance use: never Gender identity (if verbalized by the patient): Female Spiritual care concerns: No Exam Narrative: APPEARANCE: Well appearing, no pain, no distress, well-nourished. HEAD: normocephalic, posterior scalp laceration EYES: PERRLA/EOMI, conjunctivae clear. NOSE: Normal no drainage THROAT: Pharynx clear, no exudate. NECK: Supple. No adenopathy, no masses. RESPIRATORY: Airway patent, respirations nonlabored. Clear to auscultation bilaterally, no rales, rhonchi, wheezing. CARDIOVASCULAR: Regular rate and rhythm without murmurs rubs or gallops. ABDOMINAL: Soft, nontender, nondistended, normal bowel sounds MUSCULOSKELETAL: Moves all extremities. Strength/ROM intact, No edema, No calf tenderness. NEURO: Alert. Cranial nerves II through XII intact. Grossly intact SKIN: Warm, dry. Normal Color Course Course Emergency Course: Scalp laceration was repaired with [address] showed an acute subdural 5 mm width. [facility] and patient was accepted for transfer. Neurosurgery wanted a blood pressure of less than 160 systolic. Prior to transfer patient's blood pressure was 165 systolic. 1 inch of Nitropaste was placed and patient's blood pressure at time of transfer is 135/86. Patient family were updated on the results of the CT scan and plan for transfer. All questions and concerns were addressed. Family is unsure of the patient's CODE STATUS. Vital Signs Vital signs: Vital Signs Temperature 98.8 F 04/02/22 13:38 Pulse Rate 62 04/02/22 13:38 Respiratory Rate 20 04/02/22 13:38 Blood Pressure 154/65 H 04/02/22 13:38 Pulse Oximetry 98 04/02/22 13:38 Temperature 98.8 F 04/02/22 13:38 Pulse Rate 88 04/02/22 15:51 Respiratory Rate 16 04/02/22 15:51 Blood Pressure 135/86 04/02/22 15:51 Pulse Oximetry 100 04/02/22 15:51 Procedures Laceration Laceration 1: Time: 15:06 Site: scalp Size (cm): 2 Description: linear Depth: simple, single layer Local Anesthetic: lidocaine 1% Amount of anesthesia used (mL): 2 Pre-repair: wound explored
--- NOTE | 2022-04-02 13:46 | ECG_ITS ---
Measurements Intervals [place] Rate: 62 P: 42 MD: 192 QRS: -5 QRSD: 87 T: 80 QT: 385 QTc: 391 Interpretive Statements SINUS RHYTHM DELAYED PRECORDIAL R/S TRANSITION BORDERLINE T WAVE ABNORMALITY- HIGH LATERAL LEADS BASELINE ARTIFACT- I, III, AVR, AVL, V4 BORDERLINE ECG Electronically Signed On 04-02-2022 13:52:41 CDT by Thomas Keita D.O.
[2022-04-02] MEDS: NITROGLYCERIN OINTMENT 1 INCH DOSE TRANSDERM (15:25)
[2022-04-02 15:51] VITALS: BP 135/86; PULSE 88; RESP 16; O2SAT 100
== END 2022-04-02 15:52 | disposition short-term general hospital (02) ==
PROVIDERS: Emergency Provider Emergency Medicine; PCP Family Medicine
DX: S06.5X0A Traumatic subdural hemorrhage without loss of consciousness, initial encounter (principal); S01.01XA Laceration without foreign body of scalp, initial encounter; E78.5 Hyperlipidemia, unspecified; I10 Essential (primary) hypertension; J32.9 Chronic sinusitis, unspecified; W01.0XXA Fall on same level from slipping, tripping and stumbling without subsequent striking against object, initial encounter
CPT/HCPCS: 12001; 70450; 93005; 99291; A9270

== ENCOUNTER 2022-09-12 12:46 | Outpatient (CLI) | payer MEDICARE, MEDICAID, SELFPAY ==
--- NOTE | 2022-09-12 | ECHO_ITS ---
Patient Info Name: Kateryna Schreiber Age: 82 years : 1940 Gender: Female Ht: 60 in Wt: 195 lbs BSA: 1.98 m2 HR: 58 bpm BP: 138 / 76 mmHg Heart Rhythm: Sinus Rhythm, Bradycardia Exam Date: 09/12/2022 1:26 PM Exam Location: [facility] Pulmonary Patient Status: Outpatient Admit Date: 09/12/2022 Staff Ordering Physician: Tiffany, Sapphire [employer] Teacher: Tammie Kelly RDCS Attending Provider: TiffanySapphire NP Exam Type: CA echo doppler color flow Study Info Indications - systolic murmur Complete two-dimensional, color flow and Doppler transthoracic echocardiogram is performed. Summary 1. Complete two-dimensional, color flow and Doppler transthoracic echocardiogram is performed. 2. Left ventricular chamber dimension is normal. 3. Left ventricular systolic function is normal, estimated at 55-60%. 4. There is mildly increased left ventricular wall thickness. 5. The left ventricular diastolic function is grade I diastolic dysfunction. 6. Right ventricular systolic function is normal. 7. Left atrial chamber dimension is mildly enlarged. 8. There is moderate aortic valve calcification. 9. There is mild to moderate aortic valve stenosis with a peak velocity of 249 cm/s, mean gradient of 14 mmHg, and aortic valve area of 1.2 cm2. 10. There is mild tricuspid valve regurgitation. Left Ventricle Left ventricular chamber dimension is normal. Left ventricular systolic function is normal, estimated at 55-60%. There is mildly increased left ventricular wall thickness. The left ventricular diastolic function is grade I diastolic dysfunction. Right Ventricle Right ventricular chamber dimension is normal. Right ventricular systolic function is normal. Left Atria Left atrial chamber dimension is mildly enlarged. Right Atria Right atrial chamber dimension is normal. Atrial Septum Intact interatrial septum visualized by color flow imaging. Aortic Valve The aortic valve is not well visualized. There is mild to moderate aortic valve stenosis with a peak velocity of 249 cm/s, mean gradient of 14 mmHg, and aortic valve area of 1.2 cm2. There is no aortic valve regurgitation. There is moderate aortic valve calcification. Pulmonic Valve The pulmonic valve is not well visualized. Mitral Valve The mitral valve has thickened leaflets. There is no mitral valve stenosis. There is trace mitral valve regurgitation. Tricuspid Valve The tricuspid valve leaflets are normal. There is no significant tricuspid valve stenosis. There is mild tricuspid valve regurgitation. Pericardium/Pleural There is no pericardial effusion. Inferior Vena Cava Normal inferior vena cava with >50% collapse upon inspiration consistent with normal right atrial pressure, 3 mmHg. Aorta The aortic root size at the sinus of Valsalva is borderline dilated. Left Ventricular Outflow Tract Name Value Normal LVOT 2D LVOT Diameter 2.0 cm LVOT Doppler LVOT Peak Gradient 3 mmHg LVOT Mean Gradient 2 mmHg LVOT VTI 20 cm LVOT VTI/AV VTI R
== END 2022-09-12 12:47 | disposition home or self-care (01) ==
PROVIDERS: PCP Family Medicine; Visit Provider Registered Nurse
DX: R01.1 Cardiac murmur, unspecified (principal); I34.0 Nonrheumatic mitral (valve) insufficiency; I35.1 Nonrheumatic aortic (valve) insufficiency; I36.1 Nonrheumatic tricuspid (valve) insufficiency
CPT/HCPCS: 93306

== ENCOUNTER 2022-09-19 12:37 | Outpatient (CLI) | payer MEDICARE, MEDICAID, SELFPAY ==
--- NOTE | ~2022-09-19 | DEXA_ITS ---
Bone Density Report Name: KELSI POWELL Age: 82 Sex: Female Ethnicity: White Date of : 1940 Indication: postmenopausal; screening for osteoporosis; asthma or emphysema; Referring Provider: TERESA, MARTIN Study: Bone densitometry was performed. Exam Date: September 19, 2022 Accession number: [id number] Bone Density: Region BMD T-score Z-score Classification AP Spine(L1-L4) 0.914 -1.2 1.6 Osteopenia Femoral Neck (Left) 0.710 -1.2 1.3 Osteopenia Total Hip (Left) 0.837 -0.9 1.4 Normal Femoral Neck (Right) 0.658 -1.7 0.8 Osteopenia Total Hip (Right) 0.763 -1.5 0.8 Osteopenia Total Hip Mean 0.800 -1.2 1.1 Osteopenia World Health Organization criteria for BMD impression classify patients as: Normal (T-score at or above -1.0), Osteopenia (T-score between -1.0 and -2.5), or Osteoporosis (T-score at or below -2.5). 10-year Fracture Risk(1): Major Osteoporotic Fracture 13% Hip Fracture 3.5% Reported Risk Factors: [place] (), Neck BMD=0.658, BMI=37.2 (1) FRAX(R) Version 3.08. Fracture probability calculated for an untreated patient. Fracture probability may be lower if the patient has received treatment. Clinical Information Provided by Patient: Has the following medical conditions: Asthma or Emphysema Patient maximum height was 59 Menopause Age: 46 Drinks caffeinated beverages Onset of menses at age 13 Number of children 7 Impression: The patient has low bone mass, based on the Right Femoral Neck T-score. The patient has an estimated ten-year risk of hip fracture of 3.5% and an estimated ten-year risk of major fracture of 13%, based on the WHO FRAX algorithm. Discussion: BONE DENSITY IS LOW AT ONE OR MORE SKELETAL SITES. THE PATIENT'S BMD AND CLINICAL RISK FACTORS CONTRIBUTE TO THIS PATIENT'S INCREASED RISK OF FRACTURE. This patient's lowest T-score is low at one or more skeletal sites. It meets the World Health Organization's (WHO) criteria for ?low bone mass? (T-score between -1.0 and -2.5). The patient's 10-year risk of hip fracture as calculated by FRAX exceeds the threshold where pharmacological therapy is recommended by the National Osteoporosis Foundation (NOF). However, all treatment decisions require clinical judgment and consideration of individual patient factors, including patient preferences, comorbidities, previous drug use, risk factors not captured in the FRAX model (e.g., frailty, falls, vitamin D deficiency, increased bone turnover, interval significant decline in bone density) and possible under or overestimation of fracture risk by FRAX. The patient should follow a healthful lifestyle (good nutrition with adequate calcium and vitamin D, and appropriate weight-bearing exercise). Follow-Up: Consider a repeat BMD and Vertebral Fracture Assessme
== END 2022-09-19 12:38 | disposition home or self-care (01) ==
PROVIDERS: PCP Family Medicine; Visit Provider Registered Nurse
DX: Z78.0 Asymptomatic menopausal state (principal); M85.89 Other specified disorders of bone density and structure, multiple sites
CPT/HCPCS: 77080

== ENCOUNTER 2022-11-07 09:09 | Outpatient (CLI) | payer MEDICARE, MEDICAID, SELFPAY ==
--- NOTE | ~2022-11-07 | US_ITS ---
EXAMINATION: US thyroid DATE: 11/07/2022 09:42 INDICATION: Multiple thyroid nodules. TECHNIQUE: Multiple ultrasound images of the thyroid were obtained. COMPARISON: None. FINDINGS: The right thyroid lobe measures 3.0 x 2.1 x 2.0 cm. The left thyroid lobe measures 3.3 x 1.9 x 1.7 c m. In the right thyroid lobe, there is a 1.6 cm mixed cystic and solid, isoechoic, wide as tall nodu le with smooth margin without echogenic foci (TI-RADS TR2). In the left thyroid lobe, there is a 1.7 cm predominantly cystic nodule (TR1). IMPRESSION: 1. Thyroid nodules, likely benign. No follow-up is needed. Reviewed, dictated and finalized at location A. [employer]
== END 2022-11-07 09:10 | disposition home or self-care (01) ==
PROVIDERS: PCP Registered Nurse; Visit Provider Registered Nurse
DX: E04.2 Nontoxic multinodular goiter (principal)
CPT/HCPCS: 76536

== ENCOUNTER 2023-08-27 12:38 | Outpatient (CLI) | payer MEDICARE, MEDICAID, SELFPAY ==
--- NOTE | 2023-08-27 12:49 | ECHO_ITS ---
Patient Info Name: Kateryna Schreiber Age: 83 years : 1940 Gender: Female Ht: 62 in Wt: 215 lbs BSA: 2.12 m2 HR: 61 bpm BP: 130 / 76 mmHg Technical Quality: Fair Exam Date: 08/27/2023 1:04 PM Exam Location: Echo Lab Patient Status: Outpatient Admit Date: 08/27/2023 Staff Ordering Physician: Thomas Keita DO Attending Provider: Thomas Keita DO Referring Physician: Bossman MARTINEZ; Exam Type: CA echo doppler color flow Study Info Indications I35.0 - Nonrheumatic aortic (valve) stenosis Complete two-dimensional, color flow and Doppler transthoracic echocardiogram is performed. Summary 1. Complete two-dimensional, color flow and Doppler transthoracic echocardiogram is performed. 2. Left ventricular chamber dimension is normal. 3. Left ventricular systolic function is normal, estimated at 60-65%. 4. There is moderate concentric increased left ventricular wall thickness. 5. The left ventricular diastolic function is grade I diastolic dysfunction. 6. E/e' 9 is minimally elevated. 7. Left atrial chamber dimension is moderately enlarged. 8. There is moderate aortic valve sclerosis. 9. There is mild aortic valve stenosis with a peak velocity of 263 cm/s, mean gradient of 13 mmHg, and aortic valve area of 1.5 cm2. 10. The mitral valve has mildly calcified annulus. 11. There is mild mitral valve regurgitation. 12. There is mild to moderate tricuspid valve regurgitation. 13. No pulmonary hypertension, estimated pulmonary arterial systolic pressure is 39 mmHg. Left Ventricle E/e' 9 is minimally elevated. Left ventricular chamber dimension is normal. Left ventricular systolic function is normal, estimated at 60-65%. There is moderate concentric increased left ventricular wall thickness. The left ventricular diastolic function is grade I diastolic dysfunction. Right Ventricle Right ventricular systolic function is normal and with normal TAPSE 2.5 cm. Right ventricular chamber dimension is normal. Left Atria Left atrial chamber dimension is moderately enlarged. Right Atria Right atrial chamber dimension is normal. Aortic Valve The aortic valve is trileaflet. There is moderate aortic valve sclerosis. There is mild aortic valve stenosis with a peak velocity of 263 cm/s, mean gradient of 13 mmHg, and aortic valve area of 1.5 cm2. There is no aortic valve regurgitation. Pulmonic Valve There is no pulmonic regurgitation. Mitral Valve The mitral valve has mildly calcified annulus. There is no mitral valve stenosis. There is mild mitral valve regurgitation. Tricuspid Valve There is mild to moderate tricuspid valve regurgitation. No pulmonary hypertension, estimated pulmonary arterial systolic pressure is 39 mmHg. Pericardium/Pleural There is no pericardial effusion. Inferior Vena Cava Normal inferior vena cava with >50% collapse upon inspiration consistent with normal right atrial pressure, 5 mmHg. Aorta The aortic root size at the sinus of Valsalva is normal. Left Ventricular Outflow Tract Name Value Normal LVOT 2D LVOT Diameter 2.0 cm LVOT Doppler LVOT Peak Gradient 5 mmHg LVOT Mean Gradient 3 mmHg LVOT VTI 29 cm
== END 2023-08-27 12:39 | disposition home or self-care (01) ==
LOC: ANHCARD 12:39
PROVIDERS: PCP Registered Nurse; Visit Provider Internal Medicine Cardiovascular Disease
DX: I35.0 Nonrheumatic aortic (valve) stenosis (principal); I34.0 Nonrheumatic mitral (valve) insufficiency; I35.1 Nonrheumatic aortic (valve) insufficiency; I36.1 Nonrheumatic tricuspid (valve) insufficiency
CPT/HCPCS: 93306